=== PATIENT | male | born 1960 | race Caucasian/White ===

== ENCOUNTER 2017-02-08 23:59 | Emergency (ER) | payer MEDICAID ==
[2017-02-09] MEDS ORDERED: SOLUMEDROL 125 MG/2 ML 125 MG/2 ML PDS IV ONE (00:26)
[2017-02-09] MEDS ORDERED: KETOROLAC TROMETHAMINE 30 MG/ML SOL IV ONE (00:26)
[2017-02-09] MEDS ORDERED: ALBUTEROL/IPRATROPIUM 1 VIAL SOL INH ONE (00:26)
[2017-02-09] MEDS ORDERED: KETOROLAC TROMETHAMINE 30 MG/ML SOL ONE (00:36)
[2017-02-09] MEDS ORDERED: SOLUMEDROL 125 MG/2 ML 125 MG/2 ML PDS ONE (00:36)
[2017-02-09] MEDS ORDERED: ALBUTEROL/IPRATROPIUM 1 VIAL SOL ONE (00:37)
[2017-02-09] MEDS ORDERED: SODIUM CHLORIDE 0.9% FLUSH 10 ML SOL IV PRN (00:40)
[2017-02-09] MEDS ORDERED: SODIUM CHLORIDE 0.9% 1000 ML SOL IV SCH (01:00)
[2017-02-09 01:18] VITALS: TEMP 97.6
[2017-02-09 02:29] VITALS: PULSE 79
[2017-02-09 02:30] VITALS: BP 109/63; RESP 21; O2SAT 94
== END 2017-02-09 02:55 | disposition home or self-care (01) | DRG 552 ==
LOC: ED 23:59
DX: M54.5 Low back pain (principal); J44.1 Chronic obstructive pulmonary disease with (acute) exacerbation
CPT/HCPCS: 71010; 93005; 96365; 96374; 96375; 99284; 99285; J1885; J2930; J7620